=== PATIENT | female | born 1945 | race African-American/Black ===

== ENCOUNTER 2023-08-07 13:05 | Emergency (ER) | payer OTHER ==
[~2023-08-07] VITALS: Ht 167.6 cm; Wt 78.0 kg
[2023-08-07] MEDS ORDERED: IV NORMAL SALINE 1000 ML BAG IV ONE (13:15)
[2023-08-07] MEDS ORDERED: ATOR40TA PO (13:23)
[2023-08-07] MEDS ORDERED: ACET325C7 PO (13:23)
[2023-08-07] MEDS ORDERED: AMLO10TA59 PO (13:23)
[2023-08-07] MEDS ORDERED: QUET25TA PO (13:23)
[2023-08-07] MEDS ORDERED: LEVO88TA5 PO (13:23)
[2023-08-07 13:53] LABS: BASOPHILS # (AUTO) 0.1 K/UL (0.0-0.2); BASOPHILS % (AUTO) 1.5 % (0.0-2.0); CALCIUM 10.2 mg/dL (8.5-10.1); CARBON DIOXIDE 25 mmol/L (21-32); CHLORIDE 101 mmol/L (98-107); CREATININE 0.6 mg/dL (0.6-1.3); EOSINOPHILS # (AUTO) 0.1 K/uL (0.0-0.7); EOSINOPHILS % (AUTO) 2.1 % (0.0-7.0); GLUCOSE 121 mg/dL (74-106); HEMATOCRIT 41.1 % (31.2-41.9); HEMOGLOBIN 13.9 g/dL (10.9-14.3); LYMPHOCYTES % (AUTO) 43.1 % (20.5-51.5); MEAN CORPUSCULAR HEMOGLOBIN 31.7 uug (24.7-32.8); MEAN CORPUSCULAR HGB CONC 34 g/dL (32.3-35.6); MEAN CORPUSCULAR VOLUME 93.4 fL (75.5-95.3); MONOCYTES # (AUTO) 0.7 K/uL (0.1-1.30); MONOCYTES % (AUTO) 9.8 % (0.0-11.0); NEUTROPHILS % (AUTO) 43.5 % (38.5-71.5); PLATELET COUNT (AUTO) 315 K/uL (179-408); POTASSIUM 3.3 mmol/L (3.5-5.1); RED CELL DISTRIBUTION WIDTH 14.6 % (12.3-17.7); SODIUM SERUM 140 mmol/L (136-145); UREA NITROGEN, BLOOD 6 mg/dL (7-18); WHITE BLOOD COUNT (AUTO) 6.8 K/uL (3.8-11.8)
[2023-08-07 13:58] LABS: ALANINE AMINOTRANSFERASE 28 U/L (14-59); ALBUMIN 4.3 g/dL (3.4-5.0); ALKALINE PHOSPHATASE 114 U/L (50-136); ASPARTATE AMINOTRANSFERASE 26 U/L (15-37); BILIRUBIN,TOTAL 0.5 mg/dL (0.2-1.0); MAGNESIUM 2.3 mg/dL (1.8-2.4); PHOSPHOROUS 2.3 mg/dL (2.5-4.9); TOTAL PROTEIN, SERUM 8.2 g/dL (6.4-8.2)
[2023-08-07 14:00] LABS: ETHANOL < 3 MG/DL (0-10)
[2023-08-07 14:06] LABS: THYROID STIMULATING HORMONE 2.446 mIU/mL (0.358-3.740)
[2023-08-07 15:18] LABS: *AMPHETAMINE, URINE NEGATIVE (NEGATIVE); *BARBITURATE, URINE NEGATIVE (NEGATIVE); *BENZODIAZEPINE, URINE NEGATIVE (NEGATIVE); *CANNABINOID, URINE NEGATIVE (NEGATIVE); *COCCAINE, URINE NEGATIVE (NEGATIVE); *OPIATE, URINE NEGATIVE (NEGATIVE); *PHENCYCLIDINE SCREEN,URINE NEGATIVE (NEGATIVE); FENTANYL, URINE NEGATIVE (NEGATIVE)
[2023-08-07] MEDS ORDERED: MECLIZINE HCL 25 MG TABLET PO ONE (15:30)
[2023-08-07] MEDS ORDERED: POTASSIUM CHLORIDE 20 MEQ TAB.PRT.SR PO ONE (15:45)
[2023-08-07 15:46] LABS: *BILIRUBIN,URIN NEGATIVE (NEGATIVE); *BLOOD, URINE NEGATIVE (NEGATIVE); *CLARITY,URINE CLEAR (CLEAR); *COLOR,URINE YELLOW (YELLOW); *KETONES,URINE NEGATIVE (NEGATIVE); *PROTEIN,URINE NEGATIVE (NEGATIVE); *UROBILINOGEN,URINE 0.2 E.U./dl (NORMAL); LEUKOCYTE ESTERASE ,URINE 1+ (NEGATIVE); NITRITE, URINE NEGATIVE (NEGATIVE); UGLUCOSE NEGATIVE (NEGATIVE)
[2023-08-07] MEDS ORDERED: POTASSIUM CHLORIDE 20 MEQ TAB.PRT.SR ONE (15:47)
[2023-08-07] MEDS ORDERED: MECLIZINE HCL 25 MG TABLET ONE (15:47)
[2023-08-07] MEDS ORDERED: ASPIRIN 81 MG TAB.CHEW PO ONE (16:00)
[2023-08-07] MEDS ORDERED: ASPIRIN 81 MG TAB.CHEW ONE (16:01)
[2023-08-07 16:47] LABS: RBC,URINE 0-3 /HPF (0-3)
[2023-08-07 20:01] VITALS: O2SAT 94
== END 2023-08-07 21:19 | disposition short-term general hospital (02) ==
LOC: ER 13:05
DX: E87.6 Hypokalemia (principal); R25.1 Tremor, unspecified; R55 Syncope and collapse; R42 Dizziness and giddiness; F03.90 Unspecified dementia, unspecified severity, without behavioral disturbance, psychotic disturbance, mood disturbance, and anxiety; I10 Essential (primary) hypertension; E78.5 Hyperlipidemia, unspecified; Z79.899 Other long term (current) drug therapy
CPT/HCPCS: 36415; 70450; 71045; 83735; 84100; 84443; 84484; 85025; 93005; A4606; A4663; C1758; G0480; J7040; J8597